=== PATIENT | female | born 1980 | race African-American/Black ===

== ENCOUNTER 2016-07-19 12:34 | Emergency (ER) | payer SELFPAY ==
[2016-07-19] MEDS ORDERED: KETOROLAC TROMETHAMINE 60 MG/2 ML SDV IM ONE (14:02)
--- NOTE | 2016-07-19 14:24 | ER Document Report ---
HPI - HPI Patient complains to provider of: HEADACHE AND SINUS PROBLEMS Onset: Other - 2 weeks Onset/Duration: Intermittent Quality of pain: Throbbing Severity: Severe Pain Level: 5 Context: Patient states she's been having intermittent headache for the last couple weeks. She states she has chronic sinus problems. But has been worse the last couple weeks. Has tried NyQuil and [id number] sinus problems. Denies fever. Patient has no local primary care physician. Associated Symptoms: Nonproductive cough, Earache, Headache, Sinus pain/drainage , Sore throat. denies: Fever, Nausea, Vomiting, Shortness of breath Exacerbated by: Denies Relieved by: Denies Similar symptoms previously: Yes Recently seen / treated by doctor: No - ROS ROS below otherwise negative: Yes Systems Reviewed and Negative: Yes All other systems reviewed and negative - CONSTITUTIONAL Constitutional: DENIES: Fever - EENT EENT: REPORTS: Sore Throat, Ear Pain, Nasal Drainage-Purulent, Congestion - NEURO Neurology: REPORTS: Headache. DENIES: Weakness, Vision blurred, Dizzinesss / Vertigo - CARDIOVASCULAR Cardiovascular: DENIES: Chest pain - RESPIRATORY Respiratory: REPORTS: Coughing. DENIES: Trouble Breathing - GASTROINTESTINAL Gastrointestinal: DENIES: Abdominal Pain, Nausea - URINARY Urinary: DENIES: Dysuria - MUSCULOSKELETAL Musculoskeletal: DENIES: Extremity pain - DERM Skin Color: Normal Skin Problems: None Past Medical History - General Information source: Patient - Social History Smoking Status: Current Every Day Smoker Cigarette use (# per day): Yes Frequency of alcohol use: Occasional Drug Abuse: None Lives with: Family Family History: Reviewed & Not Pertinent Patient has suicidal ideation: No Patient has homicidal ideation: No - Medical History Medical History: Negative Renal/ Medical History: Denies: Hx Peritoneal Dialysis Past Surgical History: Reports: Hx Orthopedic Surgery - Immunizations Immunizations up to date: Yes Vertical Provider Document - CONSTITUTIONAL Agree With Documented VS: Yes Exam Limitations: No Limitations General Appearance: WD/WN, No Apparent Distress - INFECTION CONTROL TRAVEL OUTSIDE OF THE [place] IN LAST 30 DAYS: No - HEENT HEENT: Atraumatic, Normocephalic, PERRLA - EOMI Notes: Tympanic membranes are dull bilaterally. Throat normal. Patient has tenderness over both frontal and maxillary sinuses. - NECK Neck: Normal Inspection, Supple - RESPIRATORY Respiratory: Breath Sounds Normal, No Respiratory Distress O2 Sat by Pulse Oximetry: 99 - CARDIOVASCULAR Cardiovascular: Regular Rate, Regular Rhythm - MUSCULOSKELETAL/EXTREMETIES Musculoskeletal/Extremeties: MAEW, FROM - NEURO Level of Consciousness: Awake, Alert, Appropriate - DERM Integumentary: Warm, Dry, No Rash Course - Vital Signs Vital signs: Temp Pulse Resp BP Pulse Ox 98.8 F 78 16 133/87 H 99 07/19/16 12:50 07/19/16 12:50 07/19/16 12:50 07/19/16 12:50 07/19/16 12:50 Discharge - Discharge Clinical Impression: Headache above the eye region Acute maxillary sinusitis, unspecified Qualifiers: Recurrence: not specified as recurrent Qualified Code(s): J01.00 - Acute maxillary sinusitis, unspecified Acute frontal sinusitis, unspecified Qualifiers: Recurrence: not specified as recurrent Qualified Code(s): J01.10 - Acute frontal sinusitis, unspecified Condition: Good Disposition: HOME, SELF-CARE Instructions: Headache ([facility]), Sinusitis ([facility]), Toradol Injection ([facility]) Additional Instructions: Continue [id number] sinus medication with decongestant, but must take on a routine basis to help with symptoms. Flonase daily as instructed along with antibiotics. Tylenol or Motrin as needed for headaches Push fluids Saline nasal rinses, nasal spray, or Irma pot to help with nasal congestion. [facility] Return as needed Prescriptions: Fluticasone Propionate [Flonase Nasal [place] 50 Mcg/[place] 16 gm] 2 sprays NASL DAILY #1 inhaler Prednisone 20 mg PO BID #6 tablet Sulfamethoxazole/Trimethoprim [Septra-Ds 800-160 mg Tablet] 1 tab PO BID #20 tablet
[2016-07-19 15:00] VITALS: BP 125/63
== END 2016-07-19 15:00 | disposition home or self-care (01) ==
LOC: ER 12:34
DX: J01.00 Acute maxillary sinusitis, unspecified (principal); J01.10 Acute frontal sinusitis, unspecified; R51 Headache; F17.210 Nicotine dependence, cigarettes, uncomplicated
CPT/HCPCS: 99283; 96372; J1885